=== PATIENT | male | born 1950 | race Caucasian/White ===

== ENCOUNTER → 2018-02-12 | Outpatient (CLI) | payer MEDICARE, BC, OTHER | LOC: OD 10:50 | PROVIDERS: ATTEND Physician Assistant | DX: E11.40 Type 2 diabetes mellitus with diabetic neuropathy, unspecified (principal) | CPT/HCPCS: 36415; 83036 ==

== ENCOUNTER → 2018-04-06 | Outpatient (CLI) | payer MEDICARE, BC | LOC: OD 08:45 | PROVIDERS: ATTEND Orthopaedic Surgery | DX: E13.9 Other specified diabetes mellitus without complications (principal) | CPT/HCPCS: 36415; 83036 ==